=== PATIENT | male | born 1975 ===

== ENCOUNTER 2023-12-03 12:20 | Emergency (ER) | payer OTHER ==
[~2023-12-03] VITALS: Ht 172.7 cm; Wt 94.1 kg
[2023-12-03 12:34] VITALS: BP 147/98; PULSE 93; RESP 18; TEMP 98
[2023-12-03 12:50] LABS: COVID AG,FIA SOURCE NASAL SWAB
[2023-12-03 13:47] LABS: INFLUENZA TYPE A NEGATIVE FOR TYPE A (NEGATIVE); INFLUENZA TYPE B NEGATIVE FOR TYPE B (NEGATIVE); SARS-COV2 (COVID) ANTIGEN,FIA Negative (Negative)
== END 2023-12-03 13:30 | disposition left against medical advice (07) ==
LOC: EMS 12:20
DX: R05.9 Cough, unspecified (principal); Z20.822 Contact with and (suspected) exposure to COVID-19; Z53.21 Procedure and treatment not carried out due to patient leaving prior to being seen by health care provider
CPT/HCPCS: 71045; 87804